=== PATIENT | female | born 1980 | race Caucasian/White ===

== ENCOUNTER 2018-01-13 08:44 | Emergency (ER) | payer OTHER, MEDICAID ==
[~2018-01-13] VITALS: Ht 182.9 cm; Wt 94.1 kg
[2018-01-13 08:46] VITALS: BP 116/75
[2018-01-13] MEDS ORDERED: IBUPROFEN 800 MG TABLET ONE (09:16)
[2018-01-13] MEDS ORDERED: IBUPROFEN 200 MG TABLET PO ONE (09:30)
== END 2018-01-13 10:30 | disposition home or self-care (01) ==
LOC: ED 10:24
DX: S90.112A Contusion of left great toe without damage to nail, initial encounter (principal); W22.8XXA Striking against or struck by other objects, initial encounter; Y93.89 Activity, other specified; Y99.8 Other external cause status; Y92.828 Other wilderness area as the place of occurrence of the external cause
CPT/HCPCS: 99284